=== PATIENT | male | born 1980 | race Caucasian/White ===

== ENCOUNTER → 2018-07-21 | Outpatient (CLI) | payer OTHER ==
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
--- NOTE | 2018-07-21 23:11 | CT ---
EXAMINATION TYPE: CT brain wo con DATE OF EXAM: 07/21/2018 COMPARISON: None HISTORY: 38-year-old male Headache TECHNIQUE: Examination was done in axial plane without intravenous contrast. Coronal and sagittal r econstructions performed. CT DLP: 1072.70 mGycm Automated exposure control for dose reduction was used. FINDINGS: There is no evidence of acute intracranial hemorrhage, acute ischemic changes, mass, mass-effect, or extra-axial fluid collection. There is no effacement of cerebral sulci or basal subarachnoid cister ns. There is no hydrocephalus. There is no midline shift. Anguiano-white matter distinction is preserv ed. Tiny punctate calcification anterior third ventricle probably choroid plexus calcifications. Trace mucosal thickening within the ethmoid air cells. Slight rightward nasal septal deviation. Masto id air cells well pneumatized. Orbits and globes are intact. IMPRESSION: No acute intracranial abnormality seen.
--- NOTE | 2018-07-21 23:14 | CT ---
EXAMINATION TYPE: CT lumbar spine wo con DATE OF EXAM: 07/21/2018 COMPARISON: None HISTORY: 38-year-old male with back pain after walking on crutches for 3 years. TECHNIQUE: Contiguous axial scanning of the lumbar spine without IV contrast. Coronal and sagittal re constructions performed. CT DLP: 970.0 mGycm Automated exposure control for dose reduction was used. FINDINGS: Vertebral body heights are preserved and alignment is maintained. Mild bulging discs are present at L4-L5 and L5-S1. These contribute to mild narrowing of the left L4- L5 neural foramen given corresponding mild facet arthropathy. No significant spinal canal stenosis region by CT. No additional significant neural foraminal stenosi s. No paravertebral soft tissue abnormality seen. Small fatty umbilical hernia incidentally noted. IMPRESSION: MILD BULGING DISCS AT L4-L5 AND L5-S1. ALONG WITH MILD FACET ARTHROPATHY, THERE IS MILD LEFT-SIDED NE UROFORAMINAL STENOSIS AT L4-L5. NO SPINAL CANAL STENOSIS.
== END | disposition home or self-care (01) ==
LOC: RADCTMAIN 17:33
PROVIDERS: ATTEND Psychiatry & Neurology Neurology
DX: M99.73 Connective tissue and disc stenosis of intervertebral foramina of lumbar region (principal); M51.27 Other intervertebral disc displacement, lumbosacral region; M46.96 Unspecified inflammatory spondylopathy, lumbar region; M54.2 Cervicalgia; R51 Headache
CPT/HCPCS: 70450; 72125; 72131

== ENCOUNTER → 2018-07-22 | Outpatient (CLI) | payer OTHER | END | disposition home or self-care (01) | LOC: LABWHC1 08:45 | PROVIDERS: ATTEND Psychiatry & Neurology Pain Medicine | DX: Z01.818 Encounter for other preprocedural examination (principal) | CPT/HCPCS: 93005 ==

== ENCOUNTER → 2019-05-10 | Outpatient (CLI) | payer OTHER ==
--- NOTE | 2019-05-11 06:44 | CT ---
EXAMINATION TYPE: CT sinus wo con DATE OF EXAM: 05/10/2019 COMPARISON: CT brain July 21, 2018. HISTORY: Chronic sinusitis per order. Headache with dizziness and deviated septum per patient. CT DLP: 610 mGycm. Automated Exposure Control for Dose Reduction was Utilized. TECHNIQUE: CT scan of the sinuses is performed without contrast, axial images are obtained, coronal r eformatted images are also reviewed. FINDINGS: There is 1.6 cm mucous retention cyst or polyp in the posterior inferior right maxillary si nus. Remainder of paranasal sinuses are clear without suspicious opacification or air-fluid levels. T he ostiomeatal complex is patent bilaterally on the coronal images. Nasal septum noted deviated to ri ght of midline similar to prior. Visualized portion of mastoid air cells show no abnormal opacification. The globes are intact bilate rally. IMPRESSION: Right maxillary sinus mucous retention cyst or polyp. No acute sinusitis
== END | disposition home or self-care (01) ==
LOC: RADCTMAIN 15:58
PROVIDERS: ATTEND Otolaryngology
DX: J34.1 Cyst and mucocele of nose and nasal sinus (principal); J32.9 Chronic sinusitis, unspecified
CPT/HCPCS: 70486

== ENCOUNTER → 2019-08-11 | Outpatient (CLI) | payer OTHER ==
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
== END | disposition home or self-care (01) ==
LOC: RADXRMAIN 11:11
PROVIDERS: ATTEND Family Medicine
DX: R06.02 Shortness of breath (principal); Z00.00 Encounter for general adult medical examination without abnormal findings
CPT/HCPCS: 71046

== ENCOUNTER → 2021-02-05 | Outpatient (CLI) | payer OTHER ==
--- NOTE | 2021-02-05 12:04 | CT ---
EXAMINATION TYPE: CT lumbar spine wo con DATE OF EXAM: 02/05/2021 COMPARISON: 07/21/2018 HISTORY: 40-year-old male with low back pain, M5 4.5, Lumbago TECHNIQUE: Contiguous axial scanning of the lumbar spine without IV contrast. Coronal and sagittal re constructions performed. CT DLP: 419.9 mGycm Automated exposure control for dose reduction was used. FINDINGS: Interval placement of a left-sided anterior abdominal wall generator device. The stimulator lead exte nds into the spinal canal via the right L5-S1 interlaminar space. Distal aspect of the lead is seen a t the left lateral aspect of the spinal canal at the superior endplate of T12. Vertebral body heights are preserved and alignment is maintained. Mild bulging discs redemonstrated a t L4-L5 and L5-S1 along with mild facet arthropathy lower lumbar spine. Similar mild left neural foraminal stenosis at L4-L5. Mild neuroforaminal narrowing on the right at t his level may be slightly increased. No misha canal compromise is identified. IMPRESSION: 1. NO VERTEBRAL COMPRESSION COLLAPSE OR MALALIGNMENT. 2. SIMILAR MILD BULGING DISCS AND FACET ARTHROPATHY LOWER LUMBAR SPINE. MILD BILATERAL NEUROFORAMINAL STENOSIS AT L4-L5, SLIGHTLY INCREASED ON THE RIGHT. 3. INTERVAL PLACEMENT OF STIMULATOR DEVICE. THE LEAD ENTERS THE RIGHT L5-S1 INTERLAMINAR SPACE AND EX TENDS UP INTO THE SPINAL CANAL TO THE T12 LEVEL.
== END | disposition home or self-care (01) ==
LOC: RADCTMAIN 10:33
PROVIDERS: ATTEND Psychiatry & Neurology Pain Medicine
DX: M99.73 Connective tissue and disc stenosis of intervertebral foramina of lumbar region (principal); M51.26 Other intervertebral disc displacement, lumbar region
CPT/HCPCS: 72131

== ENCOUNTER → 2021-08-22 | Outpatient (CLI) | payer OTHER | END | disposition home or self-care (01) | LOC: LABWHC1 09:42 | PROVIDERS: ATTEND Psychiatry & Neurology Pain Medicine | DX: I49.9 Cardiac arrhythmia, unspecified (principal); I45.10 Unspecified right bundle-branch block; R94.31 Abnormal electrocardiogram [ECG] [EKG] | CPT/HCPCS: 36415; 93005 ==

== ENCOUNTER → 2021-12-10 | Outpatient (CLI) | payer OTHER ==
--- NOTE | 2021-12-10 09:25 | XR ---
EXAMINATION TYPE: XR chest 2V DATE OF EXAM: 12/10/2021 COMPARISON: 08/11/2019 TECHNIQUE: PA and lateral views submitted. HISTORY: Tachycardia FINDINGS: Hyperinflation of the lungs. Chronic appearing foreign body overlying the left hemithorax with chroni c elevation left hemidiaphragm and chronic pleural effusion or thickening stable from prior exam. Hyp erinflation suggests COPD. No overt failure or pneumothorax. Linear density seen along the medial mar gin of the right lung apex. This appears stable from the CT scan of 07/21/2018 and likely therefore re lated to scar. IMPRESSION: 1. Chronic pleural-parenchymal changes are stable from prior exam. 2. COPD.
== END | disposition home or self-care (01) ==
LOC: RADXRMAIN 08:57
PROVIDERS: ATTEND Family Medicine
DX: J44.9 Chronic obstructive pulmonary disease, unspecified (principal)
CPT/HCPCS: 71046

== ENCOUNTER → 2023-06-04 | Outpatient (CLI) | payer OTHER, MEDICARE ==
--- NOTE | 2023-06-04 13:43 | XR ---
EXAMINATION TYPE: XR chest 2V DATE OF EXAM: 06/04/2023 1:39 PM COMPARISON: Chest radiographs from 12/10/2021 TECHNIQUE: XR chest 2V Frontal and lateral views of the chest. CLINICAL INDICATION:Male, 43 years old with history of R0602 SOB; FINDINGS: Lungs/Pleura: There is flattening of the diaphragm with increased lucency of the lungs. No evidence o f pneumothorax, pleural effusion or focal consolidation. Chronic senescent parenchyma changes. Chroni c elevation left hemidiaphragm. Pulmonary vascularity: Unremarkable. Heart/mediastinum: Cardiomediastinal silhouette is unremarkable. Musculoskeletal: No acute osseous pathology. Other findings: Retained shrapnel again identified within the left lung base. IMPRESSION: 1. Chronic changes without acute cardiopulmonary disease/process. 2. COPD changes.
== END | disposition home or self-care (01) ==
LOC: RADXRMAIN 13:29
PROVIDERS: ATTEND Family Medicine
DX: J44.9 Chronic obstructive pulmonary disease, unspecified (principal)
CPT/HCPCS: 71046

== ENCOUNTER → 2024-06-25 | Outpatient (CLI) | payer MEDICARE, OTHER ==
--- NOTE | 2024-06-25 13:27 | XR ---
EXAMINATION TYPE: XR ribs bilat w pa chest xray DATE OF EXAM: 06/25/2024 12:05 PM CLINICAL INDICATION: Male, 44 years old with history of R07.82 INTERCOSTAL PAIN; COMPARISON: 06/04/2023 TECHNIQUE: XR ribs bilat w pa chest xray; Frontal and oblique views of the ribs with frontal chest ra diograph. FINDINGS: The ribs have a normal appearance. No evidence of fracture. Overall, the lungs are clear. The cardiac silhouette is normal in size. The remaining osseous structures are intact. Multiple radiopaque foreign bodies are IMPRESSION: No acute osseous pathology.
== END | disposition home or self-care (01) ==
LOC: RADXRMAIN 11:42
PROVIDERS: ATTEND Family Medicine
DX: R07.82 Intercostal pain (principal)
CPT/HCPCS: 71111

== ENCOUNTER → 2024-07-07 | Outpatient (CLI) | payer MEDICARE, OTHER ==
--- NOTE | 2024-07-07 15:17 | CT ---
EXAMINATION TYPE: CT lumbar spine wo con CT DLP: 617.4 mGycm, Automated exposure control for dose reduction was used. DATE OF EXAM: 07/07/2024 11:28 AM COMPARISON: CT lumbar spine 02/05/2021. CLINICAL INDICATION:Male, 44 years old with history of M54.50 LOW BACK PAIN, UNSPECIFIED; PHH, low ba ck pain TECHNIQUE: Multiple axial images were obtained from the midportion of T11 through the sacroiliac nick nts. Soft tissue and bone windows in coronal and sagittal planes were obtained and reviewed. Contrast used: none. Oral contrast used: none. FINDINGS: Alignment: There are 5 lumbar type vertebral bodies within normal alignment. Bone: No evidence of fracture is identified. Spinal stimulator lead identified within the left aspec t of the spinal canal entering at L5-S1 intraspinal space and extending superiorly with termination n ot identified on imaging. Discs: T12-L1: No spinal canal or neural foraminal stenosis is identified. L1-L2: No spinal canal or neural foraminal stenosis is identified. L2-L3: No spinal canal or neural foraminal stenosis is identified. L3-L4: No spinal canal or neural foraminal stenosis is identified. L4-L5: Similar broad-based disc bulge with mild effacement of the anterior thecal sac. Bilateral face t arthropathy with mild bilateral neural foraminal stenosis redemonstrated. L5-S1: Broad-based disc bulge without significant central canal stenosis. No neuroforaminal stenosis. Other: Right lower lobe linear atelectasis. IMPRESSION: 1. No evidence for spinal fracture. 2. Stable mild disc bulge with facet arthropathy at L4-L5 resulting in minimal central canal stenosis and mild bilateral neuroforaminal stenosis. Stable disc bulge at L5-S1 without significant central c anal or neuroforaminal stenosis. 3. Redemonstration of spinal stimulator lead.
== END | disposition home or self-care (01) ==
LOC: RADCTMAIN 11:02
PROVIDERS: ATTEND Psychiatry & Neurology Neurology
DX: M51.36 Other intervertebral disc degeneration, lumbar region (principal); M47.816 Spondylosis without myelopathy or radiculopathy, lumbar region; M48.061 Spinal stenosis, lumbar region without neurogenic claudication; M51.37 Other intervertebral disc degeneration, lumbosacral region
CPT/HCPCS: 72131